=== PATIENT | male | born 2000 | race Two or more races ===

== ENCOUNTER 2021-06-22 11:31 | Emergency (ER) | payer MEDICAID, OTHER ==
[~2021-06-22] VITALS: Ht 177.8 cm; Wt 113.4 kg
[2021-06-22 13:58] VITALS: BP 147/81
== END 2021-06-22 15:10 | disposition home or self-care (01) ==
LOC: ER 11:31
DX: S90.31XA Contusion of right foot, initial encounter (principal); W22.8XXA Striking against or struck by other objects, initial encounter; Y93.89 Activity, other specified; Y92.89 Other specified places as the place of occurrence of the external cause; Y99.0 Civilian activity done for income or pay
CPT/HCPCS: 73630